=== PATIENT | female | born 1975 | race Caucasian/White ===

== ENCOUNTER → 2016-05-21 | Outpatient (CLI) | payer OTHER | LOC: FIMAGING 08:34 | PROVIDERS: ATTEND Midwife | DX: R10.9 Unspecified abdominal pain (principal); Z97.5 Presence of (intrauterine) contraceptive device ==

== ENCOUNTER → 2016-05-26 | Outpatient (CLI) | payer OTHER | LOC: FIMAGING 08:45 | DX: Z12.31 Encounter for screening mammogram for malignant neoplasm of breast (principal) | CPT/HCPCS: G0202 ==

== ENCOUNTER 2017-05-22 18:28 | Emergency (ER) | payer OTHER ==
--- NOTE | 2017-05-22 18:34 | EDPHY ---
H & P Time Seen by Provider: 05/22/17 18:34 HPI/ROS: HPI: This is a 41-year-old female who presents with Chief Complaint: Dizziness, tightness in chest, panic Location: Chest Quality: Tightness Duration: 1 hr prior to arrival Signs and Symptoms: no shortness of breath at rest, no shortness of breath on exertion, no cough, no chest pain, no palpitations, no lower extremity edema, no wheezing, no orthopnea, no paroxysmal nocturnal dyspnea, no fever, no injury/ trauma, no hemoptysis, no carpal pedal spasms Timing: Acute Severity: Rapidly resolving Context: Patient reports that today she had a meeting with investors that was very stressful. She has been worried about the outcome of the meeting all day. She presents to the emergency room today with sudden onset of the chin anterior chest tightness, nonradiating in nature, adamantly denies pain while at [employer] with her and child. She reports that she started to feel lightheaded and thought that she might faint. She sat down and the symptoms improved. She drink plenty of fluids and ate something. She reports that then she started to feel anxious again and dizzy accompanied by a sense of panic. She then felt some numbness and tingling in all tender over fingers. Father has a strong coronary artery disease with triple bypass in his late 30. Patient just saw her primary care provider for full physical and given a normal pill of health. Her propranolol was increased from 20 mg daily to 40 mg daily. Denies SI, HI, hallucinations, paranoia. Upon arrival to the emergency room she reports that her anxiety and panic attack have slowly improved. Has a Merina IUD and her menses as regular. Modifying Factors: none Comment: ROS: see HPI Constitutional: No fever, no chills, no weight loss Eyes: No blurred vision Respiratory: No shortness of breath, no cough Cardiovascular: No chest pain, no palpitations, no lower extremity edema Gastrointestinal: No nausea, no vomiting, no diarrhea Genitourinary: No dysuria Extremities: No myalgias Neurologic: No weakness, no numbness Skin: No rashes Hematologic: No bruising, no bleeding MEDICAL/SURGICAL/SOCIAL HISTORY: Medical history: Anxiety, depression, polycystic ovary syndrome. Surgical history: Denies Social history: . Has children. Employed. CONSTITUTIONAL: Anxious, polite and cooperative, female, awake and alert, no obvious distress HEENT: Atraumatic and normocephalic, PERRL, EOMI. Tympanic membranes clear. Oropharynx clear, no exudate and moist pink mucosa. Airway patent. No lymphadenopathy. No meningismus. Cardiovascular: Normal S1/S2, regular rate, regular rhythm, without murmur rub or gallop. PULMONARY/CHEST: Symmetrical and nontender. Clear to auscultation bilaterally. Good air movement. No accessory muscle usage. ABDOMEN: Soft, nondistended, nontender, no rebound, no guarding, no peritoneal signs, no masses or organomegaly. No CVAT. EXTREMITIES: 2/2 pulses, strength 5/5, no deformities, no clubbing, no cyanosis or edema. NEUROLOGICAL: no focal neuro deficits. GCS 15. SKIN: Warm and dry, no erythema. no rash. Good capillary refill. Source: Patient, Family () Exam Limitations: No limitations - Personal History LMP (Females 10-55): IUD In Place (Merina) Constitutional: Initial Vital Signs Temperature (C) 36.8 C 05/22/17 18:36 Heart Rate 68 05/22/17 18:36 Respiratory Rate 18 05/22/17 18:36 Blood Pressure 164/96 H 05/22/17 18:36 O2 Sat (%) 100 05/22/17 18:36 O2 Delivery Mode Room Air Allergies/Adverse Reactions: adhesive Allergy (Verified 11/01/13 17:25) Home Medications: Medication Instructions Recorded Bcp 05/23/12 Bupropion HCl [Wellbutrin 200mg SR] 450 mg PO 05/23/12 Lisdexamfetamine Dimesylate 20 mg PO 05/23/12 [Vyvanse] metFORMIN HCL [Glucophage 850 mg 850 mg PO 05/23/12 (RX)] hydrOXYzine HCL [Vistaril 25MG] 25 - 50 mg PO Q12 PRN #12 tab 05/22/17 Medical Decision Making - Diagnostics Imaging Results: Imaging Impressions Chest X-Ray 05/22/17 18:40 Impression: 1. Bronchitis/airways disease. 2. No focal pneumonia. ED Course/Re-evaluation: EKG, chest x-ray, labs, oral medications, placed on compliance monitor ordered Vital signs reviewed upon arrival and are stable without systemic signs. Suspect this is related to her anxiety. GONZALO risk is low for ACS. Risk factor is strong family history. 1920: Labs reviewed and show no signs of anemia/electrolyte imbalance/acute kidney injury/pulmonary embolism/ACS Chest x-ray my read shows no effusion, no opacity, no pneumothorax, no widened mediastinum. Radiologist is reading bilateral peribronchial thinking but no cough/shortness of breath/chest pain. Patient is asymptomatic. Reassessed patient who reports complete relief of symptoms. Given prescription for hydroxyzine and advised to continue Propranolol. will be taking patient home. This patient was seen under the supervision of my secondary supervising physician. I evaluated care for this patient independently. Discussed this patient with Dr. Palmer who did not see the patient. Differential Diagnosis: Chest pain including but not limited to myocardial ischemia, pulmonary embolus, chest wall pain, anxiety, pleural inflammation and pulmonary infectious causes. - Data Points Laboratory Results: Laboratory Results 05/22/17 18:50 05/22/17 18:50 05/22/17 05/22/17 05/22/17 18:50 18:50 18:50 WBC RBC Hgb Hct MCV MCH MCHC RDW Plt Count MPV Neut % (Auto) Lymph % (Auto) [place] % (Auto) Eos % (Auto) Baso % (Auto) Nucleat RBC Rel Count Absolute Neuts (auto) Absolute Lymphs (auto) Absolute Monos (auto) Absolute Eos (auto) Absolute Basos (auto) Absolute Nucleated RBC Immature Gran % Immature Gran # D-Dimer < 0.27 ug/mLFEU ug/mLFEU (0.00-0.50) Sodium 139 mEq/L mEq/L (135-145) Potassium 4.0 mEq/L mEq/L (3.5-5.2) Chloride 101 mEq/L mEq/L (97-110) Carbon Dioxide 27 mEq/l mEq/l (22-31) Anion Gap 11 mEq/L mEq/L (8-16) BUN 16 mg/dL mg/dL (7-23) Creatinine 0.9 mg/dL mg/dL (0.6-1.0) Estimated GFR > 60 Glucose 85 mg/dL mg/dL (70-100) Calcium 9.0 mg/dL mg/dL (8.5-10.4) Troponin I < 0.012 ng/mL ng/mL (0.000-0.034) Beta HCG, Qual NEGATIVE 05/22/17 18:50 WBC 7.62 10^3/uL 10^3/uL (3.80-9.50) RBC 4.69 10^6/uL 10^6/uL (4.18-5.33) Hgb 14.2 g/dL g/dL (12.6-16.3) Hct 41.3 % % (38.0-47.0) MCV 88.1 fL fL (81.5-99.8) MCH 30.3 pg pg (27.9-34.1) MCHC 34.4 g/dL g/dL (32.4-36.7) RDW 11.9 % % (11.5-15.2) Plt Count 195 10^3/uL 10^3/uL (150-400) MPV 10.9 fL fL (8.7-11.7) Neut % (Auto) 52.6 % % (39.3-74.2) Lymph % (Auto) 30.6 % % (15.0-45.0) [place] % (Auto) 12.6 % % (4.5-13.0) Eos % (Auto) 3.0 % % (0.6-7.6) Baso % (Auto) 0.9 % % (0.3-1.7) Nucleat RBC Rel Count 0.0 % % (0.0-0.2) Absolute Neuts (auto) 4.01 10^3/uL 10^3/uL (1.70-6.50) Absolute Lymphs (auto) 2.33 10^3/uL 10^3/uL (1.00-3.00) Absolute Monos (auto) 0.96 10^3/uL H 10^3/uL (0.30-0.80) Absolute Eos (auto) 0.23 10^3/uL 10^3/uL (0.03-0.40) Absolute Basos (auto) 0.07 10^3/uL 10^3/uL (0.02-0.10) Absolute Nucleated RBC 0.00 10^3/uL 10^3/uL (0-0.01) Immature Gran % 0.3 % % (0.0-1.1) Immature Gran # 0.02 10^3/uL 10^3/uL (0.00-0.10) D-Dimer Sodium Potassium Chloride Carbon Dioxide Anion Gap BUN Creatinine Estimated GFR Glucose Calcium Troponin I Beta HCG, Qual Medications Given: Discontinued Medications Lorazepam (Ativan) 1 mg PO EDNOW ONE Stop: 05/22/17 18:46 Last Admin: 05/22/17 18:54 Dose: 1 mg Departure - Departure Disposition: Home, Routine, Self-Care Clinical Impression: Chest pain, non-cardiac, Anxiety Condition: Good Instructions: Generalized Anxiety Disorder (ED), Noncardiac Chest Pain (ED), Panic Attack (ED) Additional Instructions: Return at once for any worsening symptoms or concerns. Referrals: Monica Gonsalez MD [Primary Care Provider] - 5-7 days, if not improved Prescriptions: hydrOXYzine HCL [Vistaril 25MG] 25 - 50 mg PO Q12 PRN #12 tab PRN Reason: Anxiety
[2017-05-22 18:40] VITALS: TEMP 98.2
[2017-05-22] MEDS ORDERED: LORazepam 1 MG TAB PO ONE (18:45)
--- NOTE | 2017-05-22 18:46 | CPEKG ---
Heart Rate: 54 RR Interval: 1111 P-R Interval: 156 QRSD Interval: 100 QT Interval: 412 QTC Interval: 391 P [place]: 37 QRS [place]: -35 T Wave [place]: 19 EKG Severity - OTHERWISE NORMAL ECG - EKG Impression: SINUS RHYTHM EKG Impression: LEFT AXIS DEVIATION Electronically Signed By: Wyatt Palmer 22-May-2017 18:54:02
[2017-05-22 18:57] LABS: PLATELET COUNT 195 10^3/uL (150-400)
[2017-05-22 19:47] VITALS: BP 129/94; PULSE 64; RESP 16; O2SAT 97
== END 2017-05-22 19:55 | disposition home or self-care (01) ==
DX: R07.89 Other chest pain (principal); F41.9 Anxiety disorder, unspecified

== ENCOUNTER → 2017-05-28 | Outpatient (CLI) | payer OTHER | LOC: FIMAGING 09:18 | PROVIDERS: ATTEND Internal Medicine | DX: Z12.31 Encounter for screening mammogram for malignant neoplasm of breast (principal) ==

== ENCOUNTER 2017-07-06 21:30 | Emergency (ER) | payer OTHER ==
--- NOTE | 2017-07-06 22:23 | CPEKG ---
Heart Rate: 54 RR Interval: 1111 P-R Interval: 152 QRSD Interval: 100 QT Interval: 428 QTC Interval: 406 P [place]: 41 QRS [place]: -51 T Wave [place]: 15 EKG Severity - ABNORMAL ECG - EKG Impression: SINUS RHYTHM EKG Impression: LAD, CONSIDER LEFT ANTERIOR FASCICULAR BLOCK Electronically Signed By: Pradeep Gibson 07-Jul-2017 12:25:31
--- NOTE | 2017-07-06 22:24 | EDPHY ---
H & P Stated Complaint: c/o elevated bp/cp since this afternoon Time Seen by Provider: 07/06/17 22:24 HPI/ROS: HPI CHIEF COMPLAINT: Anxiety, numbness and tingling, palpitations, chest pain HISTORY OF PRESENT ILLNESS: This patient very pleasant 41-year-old female she does suffer from anxiety and panic attacks, she takes propranolol and Klonopin hand occasionally. She states around 6:00 p.m. She was cooking dinner for her children tonight and had sudden-onset what she describes as palpitations or her heart racing in her chest. She denies any shortness of breath with this. Denies nausea or vomiting. She did have some numbness and tingling throughout her chest. She also reports that she did feel slightly anxious. She took a dose of propranolol off and Klonopin. She took her blood pressure noted her blood pressure is 1 50s/100, she decided come the emergency room for this. She reports to me she was recently in the emergency room for panic attack. She also reports that she followed up with Cardiology and had a negative stress test this month. She denies syncope, denies vomiting, denies nausea, denies diaphoresis. Endorses palpitations. And some chest discomfort. It is since improved since arrival to the emergency room. Past Medical History: Anxiety/panic attack Past Surgical History: No recent surgery Social History: Lives locally denies drugs alcohol tobacco. Recently been stressed from a new business. Family History: Family history see him for coronary artery disease with an WA in her father at age 35. ROS REVIEW OF SYSTEMS: A comprehensive 10 point review of systems is otherwise negative aside from elements mentioned in the history of present illness. Exam Constitutional appears well nontoxic slightly anxious, triage nursing summary reviewed, vital signs reviewed, awake/alert. Eyes normal conjunctivae and sclera, EOMI, PERRLA. HENT normal inspection, atraumatic, moist mucus membranes, no epistaxis, neck supple/ no meningismus, no raccoon eyes. Respiratory clear to auscultation bilaterally, normal breath sounds, no respiratory distress, no wheezing. Cardiovascular rate normal, regular rhythm, no murmur, no edema, distal pulses normal. Gastrointestinal soft, non-tender, no rebound, no guarding, normal bowel sounds, no distension, no pulsatile mass. Genitourinary no CVA tenderness. Musculoskeletal no midline vertebral tenderness, full range of motion, no calf swelling, no tenderness of extremities, no meningismus, good pulses, neurovascularly intact. Skin pink, warm, & dry, no rash, skin atraumatic. Neurologic awake, alert and oriented x 3, AAOx3, moves all 4 extremities equally, motor intact, sensory intact, CN II-XII intact, normal cerebellar, normal vision, normal speech. Psychiatric slightly anxious Heme/Lymph/Immune no lymphadenopathy. Differential diagnosis includes but is not limited to: ACS, atypical chest pain , pneumothorax, pneumonia, pulmonary embolism, aortic dissection, congestive heart failure, tumor, musculoskeletal pain, esophageal pain, GERD, peptic ulcer disease, pancreatitis Medical Decision Making: Plan for this patient IV establishment with blood draw , obtain EKG, blood work, chest x-ray, D-dimer and re-evaluate. Re-evaluation: EKG interpretation by me on record in [employer] system. Impression time of EKG this is sinus rhythm rate of 54, no ST elevation no ST depression no significant T-wave abnormalities. Similar to previous EKG. Previous EKG dated 05/22/2017 1231: Patient resting comfortably no acute distress. Has no chest pain or shortness of breath. Vital signs are stable. Blood pressure improved 115/70. Heart rate has been stable in the 60s with no evidence of cardiac arrhythmia. Patient does not have any chest pain or shortness of breath or ongoing symptoms she is resting Comfortably feels well. Her workup for palpitations, has been unremarkable here in the emergency room she has a nonischemic normal EKG, negative troponin normal D-dimer normal electrolytes. She does have an anxiety component with this. I do recommend she has close follow-up with primary care doctor. Additionally for palpitations I do recommend she follows up with Cardiology possible Holter monitor. She feels comfortable going home. She has been under a large amount of stress recently I think she probably has stress and anxiety contributing to this. Return precautions discussed with her she understands return emergency room she develops chest pain shortness of breath palpitations fast heart rate syncope or worsening symptoms. Source: Patient - Medical/Surgical History Hx Asthma: No Hx Chronic Respiratory Disease: No Hx Diabetes: No Hx Cardiac Disease: Yes Hx Renal Disease: No Hx Cirrhosis: No Hx Alcoholism: No Hx HIV/AIDS: No Hx Splenectomy or Spleen Trauma: No Other PMH: Anxiety, Depression, IBS, PCOS, hypertension, appendectomy, ovarian cyst removed, fobroidenomas removed from bilat breasts, csection - Social History Smoking Status: Former smoker Constitutional: Initial Vital Signs Temperature (C) 37.1 C 07/06/17 21:38 Heart Rate 68 07/06/17 21:38 Respiratory Rate 18 07/06/17 21:38 Blood Pressure 143/94 H 07/06/17 21:38 O2 Sat (%) 99 07/06/17 21:38 O2 Delivery Mode Room Air Allergies/Adverse Reactions: adhesive Allergy (Verified 07/06/17 21:43) shrimp Allergy (Verified 07/06/17 21:43) Home Medications: Medication Instructions Recorded Bupropion HCl [Wellbutrin 200mg SR] 450 mg PO 05/23/12 Lisdexamfetamine Dimesylate 20 mg PO 05/23/12 [Vyvanse] metFORMIN HCL [Glucophage 850 mg 850 mg PO 05/23/12 (RX)] hydrOXYzine HCL [Vistaril 25MG] 25 - 50 mg PO Q12 PRN #12 tab 05/22/17 CLONAZEPAM 07/06/17 Propranolol HCl 07/06/17 Triamterene 07/06/17 Medical Decision Making - Diagnostics Imaging Results: Imaging Impressions Chest X-Ray 07/06/17 22:23 Impression: 1. No acute pulmonary disease. 2. Consider chest two views when the patient's medical condition permits. - Data Points Laboratory Results: Laboratory Results 07/06/17 22:22 07/06/17 22:22 07/06/17 07/06/17 07/06/17 22:22 22:22 22:22 WBC 11.51 10^3/uL H 10^3/uL (3.80-9.50) RBC 4.87 10^6/uL 10^6/uL (4.18-5.33) Hgb 14.8 g/dL g/dL (12.6-16.3) Hct 41.7 % % (38.0-47.0) MCV 85.6 fL fL (81.5-99.8) MCH 30.4 pg pg (27.9-34.1) MCHC 35.5 g/dL g/dL (32.4-36.7) RDW 11.9 % % (11.5-15.2) Plt Count 200 10^3/uL 10^3/uL (150-400) MPV 11.0 fL fL (8.7-11.7) Neut % (Auto) 66.5 % % (39.3-74.2) Lymph % (Auto) 18.3 % % (15.0-45.0) [place] % (Auto) 11.7 % % (4.5-13.0) Eos % (Auto) 2.6 % % (0.6-7.6) Baso % (Auto) 0.6 % % (0.3-1.7) Nucleat RBC Rel Count 0.0 % % (0.0-0.2) Absolute Neuts (auto) 7.64 10^3/uL H 10^3/uL (1.70-6.50) Absolute Lymphs (auto) 2.11 10^3/uL 10^3/uL (1.00-3.00) Absolute Monos (auto) 1.35 10^3/uL H 10^3/uL (0.30-0.80) Absolute Eos (auto) 0.30 10^3/uL 10^3/uL (0.03-0.40) Absolute Basos (auto) 0.07 10^3/uL 10^3/uL (0.02-0.10) Absolute Nucleated RBC 0.00 10^3/uL 10^3/uL (0-0.01) Immature Gran % 0.3 % % (0.0-1.1) Immature Gran # 0.04 10^3/uL 10^3/uL (0.00-0.10) PT 14.6 SEC SEC (12.0-15.0) INR 1.12 (0.83-1.16) APTT 25.4 SEC SEC (23.0-38.0) D-Dimer < 0.27 ug/mLFEU ug/mLFEU (0.00-0.50) Sodium 137 mEq/L mEq/L (135-145) Potassium 3.6 mEq/L mEq/L (3.5-5.2) Chloride 100 mEq/L mEq/L (97-110) Carbon Dioxide 26 mEq/l mEq/l (22-31) Anion Gap 11 mEq/L mEq/L (8-16) BUN 16 mg/dL mg/dL (7-23) Creatinine 0.9 mg/dL mg/dL (0.6-1.0) Estimated GFR > 60 Glucose 84 mg/dL mg/dL (70-100) Calcium 9.2 mg/dL mg/dL (8.5-10.4) Magnesium 2.1 mg/dL mg/dL (1.6-2.3) Total Bilirubin 0.3 mg/dL mg/dL (0.1-1.4) Conjugated Bilirubin 0.3 mg/dL mg/dL (0.0-0.5) Unconjugated Bilirubin 0.0 mg/dL mg/dL (0.0-1.1) AST 26 IU/L IU/L (14-46) ALT 56 IU/L H IU/L (9-52) Alkaline Phosphatase 48 IU/L IU/L (38-126) Creatine Kinase 65 IU/L IU/L (0-156) CK-MB (CK-2) Fraction 1.06 ng/mL ng/mL (0.00-3.19) Troponin I < 0.012 ng/mL ng/mL (0.000-0.034) NT-Pro-B Natriuret Pep 36 pg/mL pg/mL (0-125) Total Protein 7.0 g/dL g/dL (6.3-8.2) Albumin 4.3 g/dL g/dL (3.5-5.0) Lipase 154 IU/L IU/L (23-300) Medications Given: Discontinued Medications Sodium Chloride (Ns) 1,000 mls @ 0 mls/hr IV ONCE ONE PRN Reason: Wide Open Stop: 07/06/17 22:39 Last Admin: 07/06/17 23:07 Dose: 1,000 mls Departure - Departure Disposition: Home, Routine, Self-Care Clinical Impression: Palpitations Condition: Good Instructions: Heart Palpitations (ED) Additional Instructions: 1. Return emergency room if there is any worsening symptoms questions or concerns. 2. Follow up with her primary care doctor or chemist enzymes. 3. Return if he develops chest pain shortness of breath worsening palpitations Referrals: Monica Gonsalez MD [Primary Care Provider] - As per Instructions
[2017-07-06 22:32] LABS: PLATELET COUNT 200 10^3/uL (150-400)
[2017-07-06] MEDS ORDERED: NS 1,000 ML IV ONE (22:38)
[2017-07-06 22:42] LABS: INR 1.12 (0.83-1.16); PROTIME(PATIENT) 14.6 SEC (12.0-15.0)
[2017-07-06 22:43] LABS: CREATINE KINASE 65 IU/L (0-156)
[2017-07-07 00:03] VITALS: BP 115/73
== END 2017-07-07 00:48 | disposition home or self-care (01) ==
DX: R00.2 Palpitations (principal); Z87.891 Personal history of nicotine dependence

== ENCOUNTER → 2017-10-28 | Outpatient (CLI) | payer OTHER | DX: Z13.6 Encounter for screening for cardiovascular disorders (principal); R07.89 Other chest pain; Z82.49 Family history of ischemic heart disease and other diseases of the circulatory system ==

== ENCOUNTER 2018-02-22 17:24 | Emergency (ER) | payer OTHER ==
--- NOTE | 2018-02-22 17:25 | EDPHY ---
H & P Time Seen by Provider: 02/22/18 17:25 HPI/ROS: CHIEF COMPLAINT: Chest pressure HISTORY OF PRESENT ILLNESS: The patient presents to the ED with complaints of chest pressure that occurred 1 hr prior to arrival. The patient reportedly was driving in the car with her son when she developed her symptoms. She reports that they have improved spontaneously. She has had episodic atypical chest pain over the past year. She has been seen in the emergency department for this in the past. The patient was referred to cardiology. She had a negative treadmill stress test by her report. The patient does have coronary artery calcifications noted on a cardiac CT. The patient is currently taking medications for hypertension and diabetes. She denies any pleuritic chest pain. She denies any asymmetric calf pain or swelling. REVIEW OF SYSTEMS: A comprehensive 10 point review of systems is otherwise negative aside from elements mentioned in the history of present illness. Source: Patient Exam Limitations: No limitations - Medical/Surgical History Hx Asthma: No Hx Chronic Respiratory Disease: No Hx Diabetes: No Hx Cardiac Disease: Yes Hx Renal Disease: No Hx Cirrhosis: No Hx Alcoholism: No Hx HIV/AIDS: No Hx Splenectomy or Spleen Trauma: No Other PMH: Anxiety, Depression, IBS, PCOS, hypertension, appendectomy, ovarian cyst removed, fobroidenomas removed from bilat breasts, csection - Social History Smoking Status: Former smoker - Physical Exam Exam: General Appearance: Alert, no distress Eyes: Pupils equal and round no pallor or injection ENT, Mouth: Mucous membranes moist Respiratory: There are no retractions, lungs are clear to auscultation Cardiovascular: Regular rate and rhythm Gastrointestinal: Abdomen is soft and nontender, no masses, bowel sounds normal Neurological: A&O, normal motor function, normal sensory exam, normal cranial nerves Skin: Warm and dry, no rashes Musculoskeletal: Neck is supple nontender Extremities: symmetrical, full range of motion Constitutional: Initial Vital Signs Temperature (C) 37.1 C 02/22/18 17:26 Heart Rate 76 02/22/18 17:26 Respiratory Rate 16 02/22/18 17:26 Blood Pressure 134/81 H 02/22/18 17:26 O2 Sat (%) 96 02/22/18 17:26 O2 Delivery Mode Room Air Allergies/Adverse Reactions: adhesive Allergy (Verified 07/06/17 21:43) shrimp Allergy (Verified 07/06/17 21:43) Home Medications: Medication Instructions Recorded Bupropion HCl [Wellbutrin 200mg SR] 450 mg PO 05/23/12 Lisdexamfetamine Dimesylate 20 mg PO 05/23/12 [Vyvanse] metFORMIN HCL [Glucophage 850 mg 850 mg PO 05/23/12 (RX)] hydrOXYzine HCL [Vistaril 25MG] 25 - 50 mg PO Q12 PRN #12 tab 05/22/17 CLONAZEPAM 07/06/17 Propranolol HCl 07/06/17 Triamterene 07/06/17 Medical Decision Making - Diagnostics EKG Interpretation: EKG: Complete interpretation has been separately recorded in the [facility] archive. Summary impression: Sinus rhythm, rate 69, left axis deviation, no ST segment elevation or depression noted Repeat EKG: EKG: Complete interpretation has been separately recorded in the [facility] archive. Summary impression: Sinus rhythm, rate 66, left anterior fascicular block. No dynamic ST segment changes noted. ED Course/Re-evaluation: The patient presents to the ED after a resolved episode of nonexertional chest pain. The patient's initial EKG demonstrates no evidence of acute ischemia. I reviewed the patient's past medical records including her prior ED visits. The patient is currently asymptomatic. The patient had serial EKGs in the ED which demonstrated no ischemic changes. The patient also had serial cardiac enzymes which were normal. The patient would like to be discharged home and follow up with her [facility] as an outpatient. She does understand that she should return to the ED for markedly worsening symptoms or other concerns. I re-evaluated the patient at 7:30 p.m. And she remains asymptomatic. Differential Diagnosis: Differential diagnosis considered includes acute coronary syndrome, hypertensive emergency, hypertensive urgency, esophageal spasm, myofascial strain - Data Points Laboratory Results: Laboratory Results 02/22/18 17:25 02/22/18 17:25 02/22/18 02/22/18 02/22/18 19:10 17:42 17:35 WBC RBC Hgb POC Hgb 15.6 gm/dL gm/dL (12.6-16.3) Hct POC Hct 46 % % (38-47) MCV MCH MCHC RDW Plt Count MPV Neut % (Auto) Lymph % (Auto) [place] % (Auto) Eos % (Auto) Baso % (Auto) Nucleat RBC Rel Count Absolute Neuts (auto) Absolute Lymphs (auto) Absolute Monos (auto) Absolute Eos (auto) Absolute Basos (auto) Absolute Nucleated RBC Immature Gran % Immature Gran # POC Sodium 141 mEq/L mEq/L (135-145) Sodium POC Potassium 3.2 mEq/L L mEq/L (3.3-5.0) Potassium POC Chloride 99 mEq/L mEq/L (97-110) Chloride Carbon Dioxide Anion Gap POC BUN 16 mg/dL mg/dL (7-23) BUN Creatinine POC Creatinine 1.0 mg/dL mg/dL (0.6-1.0) Estimated GFR Glucose POC Glucose 124 mg/dL H mg/dL (70-100) Calcium POC Troponin I 0.00 ng/mL ng/mL 0.00 ng/mL ng/mL (0.00-0.08) (0.00-0.08) 02/22/18 02/22/18 17:25 17:25 WBC 7.05 10^3/uL 10^3/uL (3.80-9.50) RBC 4.96 10^6/uL 10^6/uL (4.18-5.33) Hgb 15.1 g/dL g/dL (12.6-16.3) POC Hgb Hct 44.3 % % (38.0-47.0) POC Hct MCV 89.3 fL fL (81.5-99.8) MCH 30.4 pg pg (27.9-34.1) MCHC 34.1 g/dL g/dL (32.4-36.7) RDW 12.1 % % (11.5-15.2) Plt Count 228 10^3/uL 10^3/uL (150-400) MPV 11.3 fL fL (8.7-11.7) Neut % (Auto) 44.0 % % (39.3-74.2) Lymph % (Auto) 41.6 % % (15.0-45.0) [place] % (Auto) 10.1 % % (4.5-13.0) Eos % (Auto) 3.5 % % (0.6-7.6) Baso % (Auto) 0.7 % % (0.3-1.7) Nucleat RBC Rel Count 0.0 % % (0.0-0.2) Absolute Neuts (auto) 3.10 10^3/uL 10^3/uL (1.70-6.50) Absolute Lymphs (auto) 2.93 10^3/uL 10^3/uL (1.00-3.00) Absolute Monos (auto) 0.71 10^3/uL 10^3/uL (0.30-0.80) Absolute Eos (auto) 0.25 10^3/uL 10^3/uL (0.03-0.40) Absolute Basos (auto) 0.05 10^3/uL 10^3/uL (0.02-0.10) Absolute Nucleated RBC 0.00 10^3/uL 10^3/uL (0-0.01) Immature Gran % 0.1 % % (0.0-1.1) Immature Gran # 0.01 10^3/uL 10^3/uL (0.00-0.10) POC Sodium Sodium 138 mEq/L mEq/L (135-145) POC Potassium Potassium 3.7 mEq/L mEq/L (3.5-5.2) POC Chloride Chloride 100 mEq/L mEq/L (97-110) Carbon Dioxide 25 mEq/l mEq/l (22-31) Anion Gap 13 mEq/L mEq/L (6-14) POC BUN BUN 17 mg/dL mg/dL (7-23) Creatinine 1.0 mg/dL mg/dL (0.6-1.0) POC Creatinine Estimated GFR > 60 Glucose 125 mg/dL H mg/dL (70-100) POC Glucose Calcium 9.2 mg/dL mg/dL (8.5-10.4) POC Troponin I Point of Care Test Results: Chemistry 02/22/18 02/22/18 02/22/18 19:10 17:42 17:35 POC Sodium 141 mEq/L mEq/L (135-145) POC Potassium 3.2 mEq/L L mEq/L (3.3-5.0) POC Chloride 99 mEq/L mEq/L (97-110) POC BUN 16 mg/dL mg/dL (7-23) POC Creatinine 1.0 mg/dL mg/dL (0.6-1.0) POC Glucose 124 mg/dL H mg/dL (70-100) POC Troponin I 0.00 ng/mL ng/mL 0.00 ng/mL ng/mL (0.00-0.08) (0.00-0.08) ISTAT H&H 02/22/18 17:35 POC Hgb 15.6 gm/dL gm/dL (12.6-16.3) POC Hct 46 % % (38-47) Departure - Departure Disposition: Home, Routine, Self-Care Clinical Impression: Chest pain Condition: Good Instructions: Chest Pain (ED) Additional Instructions: 1. Based upon the testing done in the Emergency Department today we see no evidence of a heart attack. 2. We are unable to fully exclude coronary artery disease based upon the testing available in the Emergency Department. 3. For this reason, we would like you to be seen by cardiology for consideration of additional testing within the next 3 days. 4. Please contact the [facility] you have been referred to schedule this appointment as soon as possible. Their offices are typically open from 8:30am- 5pm M-F. 5. Please return to the Emergency Department immediately for any recurrent chest pain, difficulty breathing or other concerns. Referrals: King Chirinos MD [Medical Doctor] - As per Instructions
--- NOTE | 2018-02-22 17:39 | CPEKG ---
Test Reason : OPEN Blood Pressure : / mmHG Vent. Rate : 069 BPM Atrial Rate : 069 BPM P-R Int : 151 ms QRS Dur : 096 ms QT Int : 400 ms P-R-T Axes : 030 -48 008 degrees QTc Int : 429 ms Sinus rhythm Probable left atrial enlargement Left anterior fascicular block Low voltage, precordial leads Confirmed by Pasquale Daniels ([id number]) on 02/22/2018 5:38:53 PM Referred By: Confirmed By:Pasquale Daniels
[2018-02-22 17:40] LABS: PLATELET COUNT 228 10^3/uL (150-400)
[2018-02-22 18:36] VITALS: BP 130/83
--- NOTE | 2018-02-24 11:17 | CPEKG ---
Test Reason : OPEN Blood Pressure : / mmHG Vent. Rate : 066 BPM Atrial Rate : 066 BPM P-R Int : 143 ms QRS Dur : 095 ms QT Int : 402 ms P-R-T Axes : 035 -65 001 degrees QTc Int : 422 ms Sinus rhythm Left anterior fascicular block Low voltage, precordial leads Confirmed by Gumaro Bear ([id number] on 02/24/2018 11:16:42 AM Referred By: Confirmed By:Gumaro Bear
== END 2018-02-22 19:36 | disposition home or self-care (01) ==
LOC: EDUNIT#
DX: R07.9 Chest pain, unspecified (principal); I25.10 Atherosclerotic heart disease of native coronary artery without angina pectoris; I10 Essential (primary) hypertension; E11.9 Type 2 diabetes mellitus without complications; F41.9 Anxiety disorder, unspecified; F32.9 Major depressive disorder, single episode, unspecified; Z87.891 Personal history of nicotine dependence
CPT/HCPCS: 82435-PO; 82565-PO; 82947-PO; 84132-PO; 84295-PO; 84484-PO; 84520-PO; 85014-PO

== ENCOUNTER → 2018-05-31 | Outpatient (CLI) | payer OTHER | LOC: FIMAGING 08:25 | PROVIDERS: ATTEND Internal Medicine | DX: Z12.31 Encounter for screening mammogram for malignant neoplasm of breast (principal) ==